=== PATIENT | female | born 1945 | race Caucasian/White ===

== ENCOUNTER → 2016-10-19 | Outpatient (CLI) | payer BC ==
[2016-10-19 12:39] LABS: EKG EKG PERFORMED
[2016-10-19 12:52] LABS: Basophils # (A) 0.1 k/uL (0-0.2); Basophils % (A) 1 %; CH 29.4; CHCM 32.8; Eosinophils # (A) 0.4 k/uL (0-0.7); Eosinophils % (A) 7 %; HCT 40.1 % (34.0-46.0); HDW 2.51; HGB 13.1 gm/dL (11.4-16.0); Luc # (Auto) 0.14; Luc % (Auto) 2; Lymphocytes # (A) 2.1 k/uL (1.0-4.8); Lymphocytes % (A) 36 %; MCH 29.4 pg (25.0-35.0); MCHC 32.8 g/dL (31.0-37.0); MCV 89.9 fL (80.0-100.0); Mean Platelet Volume 6.9; Monocytes # (A) 0.3 k/uL (0-1.0); Monocytes % (A) 5 %; Neutrophils # (A) 2.9 k/uL (1.3-7.7); Neutrophils % (A) 49 %; RBC 4.46 m/uL (3.80-5.40); RDW 13.4 % (11.5-15.5); WBC 5.9 k/uL (3.8-10.6)
[2016-10-19 13:08] LABS: ALT 29 U/L (9-52); AST 30 U/L (14-36); Alkaline Phosphatase 44 U/L (38-126); Anion Gap 10 mmol/L; Blood Urea Nitrogen 18 mg/dL (7-17); Calcium 9.4 mg/dL (8.4-10.2); Carbon Dioxide 27 mmol/L (22-30); Chloride 106 mmol/L (98-107); Glucose 93 mg/dL (74-99); Non-African American GFR(MDRD) >60 (>60 ml/min/1.73 sqM); Partial Thromboplastin Time 23.4 sec (22.0-30.0); Potassium 4.7 mmol/L (3.5-5.1); Sodium 143 mmol/L (137-145); Total Bilirubin 0.5 mg/dL (0.2-1.3)
[2016-10-19 13:11] LABS: INR 1.2 (<1.1)
[2016-10-19 13:21] LABS: Appearance,Urine Clear (Clear); Bacteria,Urine Rare /hpf; Bilirubin,Urine Negative (Negative); Glucose,Urine (UA) Negative (Negative); Ketones,Urine Negative (Negative); Leukocyte Esterase,Urine Trace (Negative); Nitrite,Urine Negative (Negative); Particle Count 1879; Protein,Urine Negative (Negative); Specific Gravity,Urine 1.004 (1.001-1.035); Squamous Epithelial Cell,Urine <1 /hpf (0-4); UA Billing (MACRO vs. MICRO) MICRO; Urobilinogen,Urine <2.0 mg/dL (<2.0); WBC,Urine 1 /hpf (0-5)
== END | disposition home or self-care (01) ==
LOC: LABPAT 12:17
PROVIDERS: ATTEND Orthopaedic Surgery
DX: Z01.818 Encounter for other preprocedural examination (principal)
CPT/HCPCS: 36415; 80053; 81001; 85025; 85610; 85730; 87070; 93005

== ENCOUNTER 2016-11-09 06:14 | Inpatient (IN) | payer BC, MEDICARE ==
[2016-10-27 14:41] VITALS: BMI 39.4
[~2016-11-09 06:14] MED LIST: ACETAMINOPHEN TAB 500 MG TAB PO ONE; DEXAMETHASONE SOD PHOSPHATE 10 MG/ML 1 ML VIAL IV ONE; FAMOTIDINE 20 MG/2 ML VIAL IV PRN; LIDOCAINE 1% 20 ML VIAL (10MG/ML) FOR IV START INTRADERMA PRN; MELOXICAM 7.5 MG TAB PO ONE; MIDAZOLAM 2 MG/2 ML VIAL IV PRN; TRANEXAMIC ACID 1,000 MG in SODIUM CHLORIDE 0.9% 100 ML IVPB ONE; VANCOMYCIN 1,500 MG in SODIUM CHLORIDE 0.9% 250 ML IVPB ONE; ceFAZolin 2 GM in SODIUM CHLORIDE 0.9% 100 ML IVPB ONE
[2016-11-09] MEDS: LACTATED RINGERS 1,000 ML IV SCH (12:25)
[2016-11-09] MEDS: ONDANSETRON 4 MG/2 ML VIAL IVP ONE ×2 (12:26→19:22)
[2016-11-09] MEDS ORDERED: ROPIVACAINE 1,100 MG, SODIUM CHLORIDE 0.9% 330 ML MISCELLANE PRN ×2 (13:40)
--- NOTE | 2016-11-09 13:42 | P.ONQ ---
Anesthesiology Proc Note - PNB - Peripheral Nerve Block Performed Right Adductor Canal Time Out Performed: Yes Procedure Start Time: 13:10 Procedure Stop Time: 13:20 Indication: Acute Post-Operative Pain, Analgesia Sedation Type: Sedate with meaningful contact maintained Preparation: Sterile Prep Position: Supine Catheter: Indwelling Needle Types: On-Q Needle Size: 100mm (4") Needle Gauge: 18 Technique: Ultrasound Injectate: 0.5% Ropivacaine (see comment for volume) Blood Aspirated: No Pain Paresthesia on Injection Noted: No Resistance on Injection: Normal Events: Uneventful and Well Tolerated
[2016-11-09] MEDS ORDERED: SUCCINYLCHOLINE CHLORIDE 100 MG/5 ML SYR IV ONE (17:10)
[2016-11-09] MEDS ORDERED: fentaNYL (PF) 50 MCG/ML 2 ML AMP ONE (17:10)
[2016-11-09] MEDS ORDERED: HYDROmorphone (PF) 1 MG/ML ONE (17:10)
[2016-11-09] MEDS ORDERED: TRANEXAMIC ACID 1,000 MG/10 ML VIAL ONE (17:10)
[2016-11-09] MEDS ORDERED: SODIUM CHLORIDE 0.9% 100 ML BAG ONE (17:10)
[2016-11-09] MEDS ORDERED: PROPOFOL 10 MG/ML 20 ML VIAL IV ONE (17:10)
[2016-11-09] MEDS ORDERED: LIDOCAINE 1% INJ 10MG/ML (20 ML MDV) ONE (17:10)
[2016-11-09] MEDS ORDERED: ROCURONIUM BROMIDE 10 MG/ML 10 ML VIAL IV ONE (17:10)
[2016-11-09] MEDS ORDERED: MIDAZOLAM 2 MG/2 ML VIAL ONE (17:10)
[2016-11-09] MEDS ORDERED: ONDANSETRON 4 MG/2 ML VIAL IVP PRN (17:12)
[2016-11-09] MEDS ORDERED: hydrOXYzine PAMOATE 25 MG CAP PO PRN (17:12)
[2016-11-09] MEDS ORDERED: HYDROcodone/APAP 5-325MG 1 EACH TAB PO PRN (17:12)
[2016-11-09] MEDS ORDERED: DIAZEPAM 5 MG TAB PO PRN ×2 (17:12)
[2016-11-09] MEDS ORDERED: NALOXONE 0.4 MG/ML 1 ML VIAL IV PRN (17:12)
[2016-11-09] MEDS ORDERED: BISACODYL 10 MG SUPP RECTAL PRN (17:12)
[2016-11-09] MEDS ORDERED: MAGNESIUM HYDROXIDE 2,400 MG/10 ML CUP PO PRN (17:12)
[2016-11-09] MEDS ORDERED: HYDROmorphone 1 MG/ML 1 ML SYRINGE IVP PRN ×3 (17:12)
[2016-11-09] MEDS: ROPIVACAINE 246.25 MG, EPINEPHrine 0.5 MG, KETOROLAC 30 MG, cloNIDine HCL/PF 80 MCG, WA... MISCELLANE ONE ×10 (17:33→18:15)
[2016-11-09] MEDS ORDERED: ceFAZolin 3,000 MG in SODIUM CHLORIDE 0.9% IRRIGATIO 3,000 ML IRRIGATION ONE (17:35)
--- NOTE | 2016-11-09 18:25 | P.OP ---
Date of Procedure: 11/09/16 Preoperative Diagnosis: Severe osteoarthritis right knee Postoperative Diagnosis: Severe osteoarthritis right knee Procedure(s) Performed: Right total knee arthroplasty Implants: [employer] Nephew Oxinium femoral component size 5, right Bobby [employer]hew Amanda II right nonporous tibial baseplate size 5 Bobby [employer] Nephew size 9 mm Legion XLPE dished articular insert, size 4-5 Bobby [employer] Nephew Amanda II resurfacing patellar component, 32 mm All components were cemented using Ej bone cement.. The articulation is ceramic on polyethylene. Anesthesia: spinal Surgeon: Callum Menard Court Bailiff #1: Pat Westbrook Court Bailiff #2: Clare Bauer Estimated Blood Loss (ml): 50 Pathology: other (Bone and cartilage) Condition: stable Disposition: PACU Indications for Procedure: After failure of conservative treatment we discussed the surgical and nonsurgical treatment options at length. Patient wishes to proceed with a total knee arthroplasty. Complications specific to this procedure were discussed at length, including but not limited to infection, bleeding, stiffness , and nerve injury. Patient is aware of all these complications and informed consent was obtained Operative Findings: The operative findings are consistent with severe osteoarthritis of the right knee Description of Procedure: Patient was seen in the preoperative area consent was reviewed and operative site was marked with a skin marker. An adductor canal pain catheter was placed by anesthesia in the preoperative area. Patient was then brought to the operating room and given preoperative antibiotics intravenously. A spinal anesthetic was administered by the anesthesia department. A tourniquet was placed on the upper thigh and the lower extremity was prepped and draped in usual sterile fashion. A gram of transexamic acid was given. A universal timeout was then performed which confirmed the patient's name, surgical site, ALLERGIES, and consent. The lower extremity was then exsanguinated and tourniquet was inflated to 250 mmHg. A standard and anterior midline approach to the knee was performed. The skin and subcutaneous tissue was dissected down to the patellar tendon. A medial parapatellar arthrotomy was then performed. The knee was then extended, the patellar was everted, and the knee was again flexed. Anterior horns of both menisci were excised, and a release was performed to the posterior medial aspect of the knee. On gross visual inspection, there was complete loss of articular cartilage in the medial and patellofemoral joint spaces. There was also significant cartilage damage in the lateral compartment. There were multiple periarticular osteophytes which were then removed with a Ronguer. The femoral canal was then opened with the appropriate drill, and the intramedullary femoral cutting guide was then placed and set for 4 of valgus. The distal femoral cutting block was then pinned in place, and the distal femur was then cut. The cutting block was then removed and the cut was checked for flatness. Next, the sizing guide was then placed and set for 3 external rotation based off of the epicondylar axis and Whitesides line. After the femur was sized, the appropriate 4-in-1 cutting block was then pinned in place. The anterior condyles were cut without notching. The posterior and chamfer cuts were performed while protecting the collateral ligaments. The cutting block was then removed, and the femoral canal was plugged with autologous bone. Attention was then directed to the tibia. The remaining ACL was removed with a Ronguer, and the tibia was then gently subluxed forward with a large bent knee retractor. Any remaining menisci was excised. The posterior lateral corner was cauterized in order to cauterize the lateral geniculate artery. The extra medullary tibial cutting guide was then placed, set for the appropriate rotation , slope, and depth of resection. The proximal tibia cutting guide was then pinned in place. Proximal tibia was then cut and sized. Next trials were then placed with the appropriate-sized insert. The knee was able to fully extend and flex to 130 and was stable throughout all range of motion. The knee was then extended, patella everted. Patella was then measured, and then using an osteotomy guide, the patella was cut at the appropriate level. The patella was then measured and drilled and the patella trial was then placed. The knee was then taken through range of motion with the patella trial and the patella tracked normally. The knee was then extended patella trial was then removed and the patella was everted. Knee was then flexed and lug holes were drilled through the femoral trial and the femoral trial was then removed. The tibial was then exposed, and the tibial broach guide was then pinned in place after it was set for the appropriate rotation to allow for the most coverage without overhang. The tibia was then reamed and broached. The cut surfaces of bone were then irrigated with pulsatile lavage. The posterior structures were injected with the ropivacaine solution. The knee was also irrigated with Irrisept solution. The components were then opened, the cement was mixed, and the components were then cemented in place. The cement was allowed to harden with the knee in full extension. While the cement was hardening, the remaining soft tissues were then injected with a ropivacaine solution, which consisted of 246.25 mg of ropivacaine, 0.5 mg of epinephrine, 30 mg of Toradol, 80 g of clonidine, and 48.45 mL of sterile water, for a total of 100 mL of fluid injected. After the cemented hardened. The tourniquet was released, and hemostasis was obtained. A second gram of transexamic acid was given. The knee was again irrigated. The knee was again taken through range of motion and found to be stable throughout all range of motion of 0-130 , and the patella tracked normally. The fascia was then closed with #2 strata fix suture. The subcutaneous tissue was closed with 3-0 Vicryl and 3-0 strata fix. Dermabond tape was used for the skin and placed with the knee in flexion. The patient was placed in a sterile dressing. Patient was then transferred to recovery room in stable condition. The information assistant DARRELL Benz was required due the complexity surgery and the need for a skilled surgical corsetier. She assisted in positioning, draping , retraction, and closure of the wound.
[2016-11-09] MEDS: HYDROmorphone 1 MG/ML 1 ML SYRINGE IVP PRN ×4 (19:22→19:41)
[2016-11-09] MEDS: SODIUM CHLORIDE 0.9% 1,000 ML IV SCH (21:15)
[2016-11-09] MEDS: ASPIRIN 325 MG TAB PO SCH (21:19)
[2016-11-09] MEDS: SENNOSIDES-DOCUSATE SODIUM 1 EACH TAB PO SCH (21:20)
[2016-11-09] MEDS: HYDROcodone/APAP 5-325MG 1 EACH TAB PO PRN (21:24)
--- NOTE | 2016-11-09 22:25 | XR ---
EXAMINATION TYPE: XR knee limited RT DATE OF EXAM: 11/09/2016 7:18 PM COMPARISON: NONE HISTORY: Postoperative TECHNIQUE: AP and crosstable lateral views FINDINGS: TKR appears anatomically positioned. Postoperative changes appreciated. No unexpected radio paque foreign bodies. Bones and joints and soft tissues are otherwise unremarkable. IMPRESSION: Postoperative study.
[2016-11-10] MEDS: ceFAZolin 2 GM in SODIUM CHLORIDE 0.9% 100 ML IVPB SCH ×2 (01:10→08:03)
[2016-11-10] MEDS ORDERED: VANCOMYCIN 1,750 MG in SODIUM CHLORIDE 0.9% 250 ML IVPB ONE (02:04)
[2016-11-10] MEDS: LACTATED RINGERS 1,000 ML IV SCH (07:34)
[2016-11-10] MEDS: SODIUM CHLORIDE 0.9% 1,000 ML IV SCH ×2 (07:34→22:38)
[2016-11-10 08:01] LABS: Basophils % (A) 0 %; CH 28.7; CHCM 32.1; Eosinophils % (A) 0 %; HCT 35.6 % (34.0-46.0); HDW 2.62; Luc # (Auto) 0.17; Luc % (Auto) 2; Lymphocytes # (A) 1.8 k/uL (1.0-4.8); Lymphocytes % (A) 19 %; MCH 30.3 pg (25.0-35.0); MCHC 33.7 g/dL (31.0-37.0); MCV 89.8 fL (80.0-100.0); Mean Platelet Volume 7.3; Monocytes # (A) 0.5 k/uL (0-1.0); Monocytes % (A) 5 %; Neutrophils # (A) 7.2 k/uL (1.3-7.7); Neutrophils % (A) 74 %; RBC 3.96 m/uL (3.80-5.40); RDW 12.8 % (11.5-15.5); WBC 9.7 k/uL (3.8-10.6); WBC (Perox) 10.55
[2016-11-10] MEDS: ASPIRIN 325 MG TAB PO SCH (08:01)
[2016-11-10] MEDS: HYDROcodone/APAP 5-325MG 1 EACH TAB PO PRN ×3 (08:02→18:12)
[2016-11-10] MEDS: MELOXICAM 7.5 MG TAB PO SCH (08:02)
--- NOTE | 2016-11-10 08:43 | P.PN ---
Subjective Principal diagnosis: Status post right total knee arthroplasty This is a pleasant 71-year-old female who is status post right total knee arthroplasty. Today's postoperative day #1. The patient is seen and evaluated at bedside with Dr. Callum Menard. Pain is well-controlled at this time. She' s not yet been up with physical therapy. She has no new complaints at this time. Objective - Vital Signs Vital signs: Vital Signs Temp 97.9 F 11/10/16 07:00 Pulse 81 11/10/16 07:00 Resp 16 11/10/16 07:00 BP 128/63 11/10/16 07:00 Pulse Ox 99 11/10/16 07:00 Intake & Output 11/09/16 11/10/16 11/10/16 18:59 06:59 18:59 Intake Total 701 350 180 Output Total 50 Balance 651 350 180 Weight 104.326 kg Intake: IV 701 150 Intake, IV Titration 200 Amount Sodium Chloride 0.9% 1, 200 000 ml @ 70 mls/hr IV . [id number] [facility] Rx#:[id number] Oral 180 Output: Estimated Blood Loss 50 Other: Voiding Method Bedpan - Exam The patient does not appear in acute distress. Alert and orientated 3. Dressing is clean dry and intact. Incision appears fine with no erythema or active drainage. Calf is soft and nontender. Good foot and ankle motion without difficulty. Sensation and circulatory status is intact. - Labs CBC & Chem 7: 11/10/16 06:41 Assessment and Plan (1) Primary osteoarthritis of right knee Status: Acute (2) Status post right knee replacement Status: Acute Plan: 1. Continue with routine postoperative care. 2. Anticoagulation with aspirin. 3. Physical therapy and CPM today. 4. Appreciate input from medicine. 5. Anticipate discharge to home with home care likely tomorrow.
--- NOTE | 2016-11-10 09:25 | P.PN ---
Subjective Principal diagnosis: pod 1; on q pump in place; comfortable; catheter system intact Objective - Vital Signs Vital signs: Vital Signs Temp 97.9 F 11/10/16 07:00 Pulse 81 11/10/16 07:00 Resp 16 11/10/16 07:00 BP 128/63 11/10/16 07:00 Pulse Ox 99 11/10/16 07:00 Intake & Output 11/09/16 11/10/16 11/10/16 18:59 06:59 18:59 Intake Total 701 350 180 Output Total 50 Balance 651 350 180 Weight 104.326 kg Intake: IV 701 150 Intake, IV Titration 200 Amount Sodium Chloride 0.9% 1, 200 000 ml @ 70 mls/hr IV . [id number] [facility] Rx#:[id number] Oral 180 Output: Estimated Blood Loss 50 Other: Voiding Method Bedpan - Labs CBC & Chem 7: 11/10/16 06:41
[2016-11-10] MEDS ORDERED: ALBUTEROL NEBULIZED 2.5 MG/3 ML INHALATION PRN (13:00)
[2016-11-10] MEDS ORDERED: traMADol 50 MG TAB PO PRN (13:00)
--- NOTE | 2016-11-10 17:07 | CONS ---
DATE OF CONSULTATION: REASON FOR CONSULTATION: Postoperative recommendations regarding anti-hypertensive medications and postoperative complication management. Patient is a very pleasant 71-year-old female who was admitted for elective right knee arthroplasty. Patient successfully underwent surgery; postoperative day 1. Patient has ( ) rate control at this point of time. Patient denied any fever or chills. Patient denied any nausea, vomiting, diarrhea, abdominal pain. Patient is complaining of some cold sore on the lip which does not appear to be herpetic in nature. REVIEW OF SYSTEMS: CONSTITUTIONAL: No fever, no malaise, no fatigue. HEENT: No recent visual problems or hearing problems. Denied any sore throat. CARDIOVASCULAR: No chest pain, orthopnea, PND, no palpitations, no syncope. PULMONARY: No shortness of breath, no cough, no hemoptysis. GASTROINTESTINAL: No diarrhea, no nausea, no vomiting, no abdominal pain. Normoactive bowel sounds. NEUROLOGICAL: No headaches, no weakness, no numbness. HEMATOLOGICAL: Denies any bleeding or petechiae. GENITOURINARY: Denies any burning micturition, frequency, or urgency. MUSCULOSKELETAL/RHEUMATOLOGICAL: Defer to Orthopedic Surgery. ENDOCRINE: Denies any polyuria or polydipsia. The rest of the 14 point review of systems is negative. Past medical history is significant for: 1. COPD without any acute exacerbation at this point of time. 2. Fibromyalgia. 3. Hypertension. 4. Hypothyroidism. 5. Osteoarthritis. 6. Appendectomy. 7. Back surgery. 8. Cholecystectomy. 9. Hysterectomy. SOCIAL HISTORY: Former smoker. Quit smoking 19 years ago. Used to smoke 1 pack per day for 30 years. Denied any alcohol abuse or any drug abuse. FAMILY HISTORY: Significant for hypertension. Home medications include: 1. Tramadol. 2. Propranolol. 3. Pregabalin. 4. Levothyroxine. 5. Fexofenadine. 6. Fenofibrate. 7. Celecoxib. 8. Aspirin. 9. Albuterol. 10. Hydrocodone/acetaminophen. PHYSICAL EXAMINATION: VITAL SIGNS: Temperature 98.3, pulse of 88, respiratory rate of 16. Blood pressure is 153/74. Saturating at 97% on room air. GENERAL: The patient is alert and oriented x3, not in any acute distress. Well developed, well nourished. HEENT: Pupils are round and equally reacting to light. EOMI. No scleral icterus. No conjunctival pallor. Normocephalic, atraumatic. No pharyngeal erythema. No thyromegaly. CARDIOVASCULAR: S1 and S2 present. No murmurs, rubs, or gallops. PULMONARY: Chest is clear to auscultation, no wheezing or crackles. ABDOMEN: Soft, nontender, nondistended, normoactive bowel sounds. No palpable organomegaly. MUSCULOSKELETAL: Defer to Orthopedic Surgery. EXTREMITIES: No cyanosis, clubbing, or pedal edema. NEUROLOGICAL: Gross neurological examination did not reveal any focal deficits. SKIN: No rashes. ASSESSMENT AND PLAN: 1. Right knee arthroplasty. Pain management as per primary service and DVT prophylaxis as per primary service. 2. Hypertension. Patient is on propranolol for that, which can be continued. Patient's blood pressures are fairly doing well at this point of time. 3. Hypothyroidism. 4. Chronic obstructive pulmonary disease without any acute exacerbation. 5. Depression. 6. Peripheral neuropathy. For above-mentioned chronic medical problems, ( ) continue her home medications. Cardiac diet. Continue her home medications, as mentioned above. Thank you for letting me participate in this patient's care. Will continue to follow the patient on as-needed basis.
[2016-11-10] MEDS ORDERED: SERTRALINE 100 MG TAB PO SCH (21:00)
[2016-11-10] MEDS: PROPRANOLOL LA 60 MG CAP.SA.24H PO SCH (22:13)
[2016-11-10] MEDS: SENNOSIDES-DOCUSATE SODIUM 1 EACH TAB PO SCH (22:13)
[2016-11-10] MEDS: PREGABALIN 75 MG CAP PO SCH (22:49)
[2016-11-11] MEDS: HYDROcodone/APAP 5-325MG 1 EACH TAB PO PRN ×3 (02:56→13:34)
[2016-11-11] MEDS: LACTATED RINGERS 1,000 ML IV SCH (05:30)
[2016-11-11] MEDS ORDERED: LEVOTHYROXINE 100 MCG TAB PO SCH (06:30)
[2016-11-11 07:15] VITALS: BP 156/79; PULSE 82; RESP 17; TEMP 98.5
[2016-11-11] MEDS: MELOXICAM 7.5 MG TAB PO SCH (07:20)
[2016-11-11] MEDS: PROPRANOLOL LA 60 MG CAP.SA.24H PO SCH (07:20)
[2016-11-11] MEDS: PREGABALIN 75 MG CAP PO SCH (07:24)
--- NOTE | 2016-11-11 08:16 | P.PN ---
Subjective Principal diagnosis: Status post total right knee arthroplasty This is a well-appearing 8-year-old female status post total right knee arthroplasty. Today is postop day #2. Patient's pain is under fair control. Patient states she has been up and walking. Patient has no new complaints and states she is ready to be discharged home today. Objective - Vital Signs Vital signs: Vital Signs Temp 98.5 F 11/11/16 07:14 Pulse 82 11/11/16 07:14 Resp 17 11/11/16 07:14 BP 156/79 11/11/16 07:14 Pulse Ox 96 11/11/16 07:14 Intake & Output 11/10/16 11/11/16 11/11/16 18:59 06:59 18:59 Intake Total 600 200 Balance 600 200 Intake: Oral 600 200 Other: Voiding Method Bedpan # Voids 1 1 # Bowel Movements 1 - Exam The patient does not appear in acute distress. Alert and oriented 3. Calf is soft and nontender. Sensation and circulatory status are intact. Vital signs are stable. Patient has good foot and ankle range of motion. Incision is clean , dry, intact with no drainage present on the dressing. - Labs CBC & Chem 7: 11/10/16 06:41 Assessment and Plan (1) Status post right knee replacement Status: Acute Plan: Patient will be discharged home today.
--- NOTE | 2016-11-11 08:31 | P.PN ---
Progress Note - Text The patient is status post right adductor canal catheter placement. The catheter was placed for postoperative pain control, status post total right arthroplasty. Ropivacaine 0.2% is infusing at 10 mLs per hour. The patient has no complaints of right lower extremity numbness or weakness. Patient's VAS score is 3-4 -10. Assessment: Patient's adductor canal catheter is in place and working appropriately. Plan: continue infusion and adjust it as needed.
--- NOTE | 2016-11-11 08:53 | P.DS ---
Providers Date of admission: 11/09/16 10:41 Expected date of discharge: 11/11/16 Attending physician: Callum Menard Consults: 11/09/16 17:12 Consult Physician Routine Consulting Provider: Violeta Gray Consult Reason/Comments: medical management Do you want consulting provider notified?: Yes Primary care physician: Taiwo Hutchison - Discharge Diagnosis(es) (1) Status post right knee replacement Current Visit: Yes Status: Acute Hospital Course: This is a 71-year-old female with known history of degenerative arthritis of the right knee. The patient presents for evaluation. After discussion and consideration patient elects to proceed with total knee arthroplasty. The patient is seen preoperatively by Dr. Menard and cleared for surgery. Patient is admitted to [facility] on 11/09/2016 for total knee arthroplasty. The procedures performed without complication or sequelae. The patient is doing well postoperatively. Labs and vital signs are stable on day of discharge. On day of discharge patient's knee incision is healing well. There is minimal erythema. There is no drainage noted at this time. There is minimal soft tissue swelling to the knee. Patient has full foot and ankle motion without difficulty or pain. Neurovascular status to the right lower extremity is intact. Patient is discharged home in good condition. Please see med rec for accurate list of home medications. Plan - Discharge Summary New Discharge Prescriptions: Aspirin 325 mg PO BID #60 tab Hydrocodone/Acetaminophen [Slater 5-325] 1 - 2 each PO Q6HR PRN #90 tab PRN Reason: Pain Sennosides-Docusate Sodium [Senokot-S] 2 tab PO DAILY #60 tablet Discharge Medication List Albuterol Inhaler [Ventolin Hfa Inhaler] 2 puff INHALATION RT-Q6H PRN 10/27/16 [ History] Aspirin 81 mg PO DAILY 10/27/16 [History] Celecoxib [CeleBREX] 200 mg PO BID 10/27/16 [History] Cyclobenzaprine [Flexeril] 10 mg PO HS 10/27/16 [History] Fenofibrate Nanocrystallized [Tricor] 145 mg PO DAILY 10/27/16 [History] Fesoterodine Fumarate [Toviaz] 8 mg PO DAILY 10/27/16 [History] Fexofenadine HCl [Rosa Allergy] 180 mg PO DAILY 10/27/16 [History] Levothyroxine Sodium [Synthroid] 100 mcg PO DAILY 10/27/16 [History] Pregabalin [Lyrica] 150 mg PO BID 10/27/16 [History] Propranolol HCl [Propranolol HCl ER] 60 mg PO BID 10/27/16 [History] Sertraline [Zoloft] 100 mg PO HS 10/27/16 [History] traMADol HCL [Ultram] 100 mg PO Q6HR PRN 10/27/16 [History] Aspirin 325 mg PO BID #60 tab 11/10/16 [Rx] Hydrocodone/Acetaminophen [Slater 5-325] 1 - 2 each PO Q6HR PRN #90 tab 11/10/16 [Rx] Sennosides-Docusate Sodium [Senokot-S] 2 tab PO DAILY #60 tablet 11/10/16 [Rx] Follow up Appointment(s)/Referral(s): Callum Menard DO [Doctor of Osteopathic Medicine] - 2 Weeks Ambulatory/Diagnostic Orders: Continuous Passive Motion (CPM) Machine [DME.AMB1] Location: Determined By Patient Activity/Diet/Wound Care/Special Instructions: Weightbearing as tolerated with a walker CPM daily Daily dressing changes, keep incision clean and dry [facility] with questions or concerns [phone] [facility] care - Call [facility] when you get home to deliver your CPM - Discharge Disposition: HOME WITH HOME HEALTH SERVICES
[2016-11-11] MEDS ORDERED: ASPIRIN 81 MG CHEW PO SCH (09:00)
[2016-11-11] MEDS ORDERED: FENOFIBRATE 160 MG TAB PO SCH (09:00)
[2016-11-11] MEDS: SODIUM CHLORIDE 0.9% 1,000 ML IV SCH (12:01)
--- NOTE | 2016-11-11 16:04 | PN ---
Patient is admitted for knee arthroplasty. Patient is clinically doing well. Patient's medication reconciliation was reviewed. Patient is okay to be discharged from my perspective. REVIEW OF SYSTEMS: CARDIOVASCULAR: No chest pain, no orthopnea, no PND, no palpitations. PULMONARY: Denied any shortness of breath. No cough or hemoptysis. GASTROINTESTINAL: No diarrhea, nausea or vomiting. No abdominal pain. Normoactive bowel sounds. NEUROLOGIC: No headaches, no weakness, no numbness. Medications were reviewed. PHYSICAL EXAMINATION: VITAL SIGNS: Temperature 98.5, pulse 75, respiratory rate of 17, blood pressure is 156/70, saturating at 96% on room air. GENERAL: The patient is alert and oriented x3, not in any acute distress. Well developed, well nourished. HEENT: Pupils are round and equally reacting to light. EOMI. No scleral icterus. No conjunctival pallor. Normocephalic, atraumatic. No pharyngeal erythema. No thyromegaly. CARDIOVASCULAR: S1 and S2 present. No murmurs, rubs, or gallops. PULMONARY: Chest is clear to auscultation, no wheezing or crackles. ABDOMEN: Soft, nontender, nondistended, normoactive bowel sounds. No palpable organomegaly. MUSCULOSKELETAL: No joint swelling or deformity. EXTREMITIES: No cyanosis, clubbing, or pedal edema. NEUROLOGICAL: Gross neurological examination did not reveal any focal deficits. SKIN: No rashes. FINAL DIAGNOSES: 1. Right knee arthroplasty. Pain management and DVT prophylaxis as per primary service. 2. Hypertension. 3. Hypothyroidism. 4. Chronic obstructive pulmonary disease without any acute exacerbation. 5. Depression. 6. Peripheral neuropathy. For above-mentioned chronic medical problems, patient can continue her home medications. I reviewed her chart. Medication reconciliation was reviewed. We will sign off at this point of time.
== END 2016-11-11 13:55 | disposition home health service (06) | DRG 470 ==
LOC: 2ORMAIN 10:41 → 3SUR 19:24
PROVIDERS: ADMIT Orthopaedic Surgery; ATTEND Orthopaedic Surgery
PROC: 0SRC0J9 Replacement of Right Knee Joint with Synthetic Substitute, Cemented, Open Approach (ICD-10-PCS; principal; 2016-11-09 15:15)
DX: M17.11 Unilateral primary osteoarthritis, right knee (principal); G62.9 Polyneuropathy, unspecified; J44.9 Chronic obstructive pulmonary disease, unspecified; I10 Essential (primary) hypertension; M21.061 Valgus deformity, not elsewhere classified, right knee; E03.9 Hypothyroidism, unspecified; Z79.899 Other long term (current) drug therapy; Z88.2 Allergy status to sulfonamides; B00.1 Herpesviral vesicular dermatitis; F32.9 Major depressive disorder, single episode, unspecified; Z82.49 Family history of ischemic heart disease and other diseases of the circulatory system; Z87.891 Personal history of nicotine dependence
CPT/HCPCS: 85025; 88300

== ENCOUNTER 2022-04-23 09:15 | Day surgery (SDC) | payer MEDICARE, OTHER ==
[2022-04-21 09:49] VITALS: BMI 42.9
--- NOTE | 2022-04-22 20:34 | HP ---
HISTORY AND PHYSICAL CHIEF COMPLAINT: Chronic laryngitis with left true vocal cord lesion. HISTORY OF PRESENT ILLNESS: This patient is a 76-year-old female who was recently seen in my office complaining of having chronic laryngitis. She states that she has had hoarseness, which has been there for several years. It does not cause any pain and she does not have any referred otalgia. She is a nonsmoker. At the time that she was seen in my office, clinical examination including indirect laryngoscopy with a headlight and mirror revealed a polypoid-like lesion on the left true vocal cord. It was recommend the patient undergo a suspension microlaryngoscopy with biopsy and possible laser removal of polypoid lesion on the left true vocal cord. PAST MEDICAL HISTORY: Reveals she has allergies to sulfa, iodine, Betadine, and merthiolate. CURRENT MEDICATIONS: Include: 1. Albuterol. 2. Symbicort. 3. Tricor. 4. Zoloft. 5. Inderal. 6. Synthroid. 7. Celebrex. 8. Lyrica. 9. Toviaz. She is 3 para, 3 . PREVIOUS SURGERIES: Include tonsillectomy, adenoidectomy, total abdominal hysterectomy, previous suspension microlaryngoscopy with polyps removed from her vocal cords years ago, cholecystectomy, appendectomy, 3 lower back surgeries, bilateral knee surgeries with 1 total knee replacement. REVIEW OF SYSTEMS: CARDIOVASCULAR: Positive for hypertension. RESPIRATORY: Positive for COPD. GASTROINTESTINAL: Negative. METABOLIC/ENDOCRINE: Positive for hypercholesterolemia, hyperlipidemia, and hypothyroidism. MUSCULOSKELETAL: Positive osteoarthritis and fibromyalgia. Remainder of review of systems is essentially unremarkable. PHYSICAL EXAMINATION: GENERAL: This patient is a pleasant 76-year-old female who was alert and cooperative. HEENT: The patient is normocephalic. Tympanic membranes are normal. Middle ear spaces are free of any fluid or infection. Pupils are equal, round, and reactive to light and accommodation. Extraocular movements are within normal limits. Intranasal examination reveals [id number] septal deviation with compensatory hypertrophy of the inferior turbinates bilaterally. Examination of oropharynx including indirect laryngoscopy reveals no suspicious lesions of the right or left piriform sinuses, base of tongue, or epiglottis. There appears to be a polypoid lesion located on the left true vocal cord. The remainder of the head and neck exam including cranial nerves 2 through 12 are within normal limits. CHEST/CARDIOVASCULAR: Both lung penn are clear to percussion and auscultation. The patient is in regular sinus rhythm. S1, S2 are present without evidence of any murmurs, S3s, or S4s. Peripheral pulses are bilaterally symmetrical. ABDOMEN: There is no evidence any masses, megaly, or tenderness. The abdomen is soft. SKIN: Unremarkable. MUSCULOSKELETAL/NEUROLOGICAL: Within normal limits. PELVIC/RECTAL: Deferred at this time as the patient has this done on a regular basis at her family physician's office. The remainder of physical exam is unremarkable. IMPRESSION: Chronic laryngitis with laryngeal lesion/left true vocal cord lesion. PLAN: The patient is scheduled to undergo a suspension microlaryngoscopy with possible laser of the polypoid lesion under general anesthesia in a.m. Attention RNs in the pre-surgical area: I have ordered for this patient to proceed 2 grams of Ancef IV to be given intravenously once an intravenous line has been established. If the pharmacy department sends a different pre-surgical prophylactic antibiotic to the pre-surgical area for this patient, please cancel that order and return the medication to the pharmacy department. Also make sure that the patient's account is credited appropriately. I have also ordered for this patient to receive 1000 mg of Ofirmev IV to be given once an intravenous line has been established. I have discussed the risks, benefits and alternative therapies for the above-mentioned procedure and for both sedation/analgesia as well as necessary blood product administration, if indicated, as they pertain to this patient. The patient has indicated her understanding and acceptance of the risks and procedures discussed. MMODL / IJN: [id number] /
[~2022-04-23 09:15] MED LIST changes: -ACETAMINOPHEN TAB 500 MG TAB PO ONE; -DEXAMETHASONE SOD PHOSPHATE 10 MG/ML 1 ML VIAL IV ONE; +DEXAMETHASONE SOD PHOSPHATE 4 MG/ML 1 ML VIAL IV ONE; -FAMOTIDINE 20 MG/2 ML VIAL IV PRN; +HYDROmorphone 0.5 MG/0.5 ML SYRINGE IVP PRN; +LACTATED RINGERS 1,000 ML IV SCH; +LIDOCAINE 1% (10MG/ML) FOR IV START INTRADERMA PRN; -LIDOCAINE 1% 20 ML VIAL (10MG/ML) FOR IV START INTRADERMA PRN; -MELOXICAM 7.5 MG TAB PO ONE; +ONDANSETRON 4 MG/2 ML VIAL IVP ONE; +Pre Op ABX Message 1 EACH MISC MISCELLANE ONE; -TRANEXAMIC ACID 1,000 MG in SODIUM CHLORIDE 0.9% 100 ML IVPB ONE; -VANCOMYCIN 1,500 MG in SODIUM CHLORIDE 0.9% 250 ML IVPB ONE; -ceFAZolin 2 GM in SODIUM CHLORIDE 0.9% 100 ML IVPB ONE
[2022-04-23] MEDS ORDERED: GLYCOPYRROLATE 0.2 MG/ML 2 ML VIAL ONE (10:50)
[2022-04-23] MEDS ORDERED: fentaNYL (PF) 50 MCG/ML 2 ML AMP ONE (10:50)
[2022-04-23] MEDS ORDERED: SUCCINYLCHOLINE CHLORIDE 200 MG/10 ML VIAL IV ONE (10:50)
[2022-04-23] MEDS ORDERED: MIDAZOLAM 2 MG/2 ML VIAL ONE (10:50)
[2022-04-23] MEDS ORDERED: LIDOCAINE 2% INJ 20 MG/ML (2 ML VIAL) ONE (10:50)
[2022-04-23] MEDS ORDERED: PROPOFOL 10 MG/ML 20 ML VIAL IV ONE (10:50)
[2022-04-23] MEDS ORDERED: ACETAMINOPHEN IV (For NPO) 1,000 MG in EMPTY BAG 1 BAG IVPB ONE (10:55)
[2022-04-23 11:58] VITALS: TEMP 97.5
[2022-04-23 12:58] VITALS: RESP 16
[2022-04-23 13:31] VITALS: BP 122/78; PULSE 71
--- NOTE | 2022-04-25 15:39 | OP ---
OPERATIVE REPORT PREOPERATIVE DIAGNOSIS: Chronic laryngitis with left true vocal cord polyp. POSTOPERATIVE DIAGNOSIS: Chronic laryngitis with left true vocal cord polyp. ANESTHESIA: General. OPERATIVE PROCEDURE: Suspension microlaryngoscopy with CO2 laser vaporization of left true vocal cord polyp. COMPLICATIONS: None. ESTIMATED BLOOD LOSS: Zero. DESCRIPTION OF PROCEDURE: The patient was placed on the operating table in supine position, and after uneventful induction and endotracheal intubation, satisfactory general anesthesia was obtained. Next, the patient's head was draped in the usual and customary fashion. Following this, the laryngoscope was introduced into patient's oropharynx and the entire hypopharynx including the right and left piriform sinuses, base of tongue, valleculae and epiglottis were inspected and found to be free of any suspicious lesions. Next, the tip of the laryngoscope was introduced into the laryngeal introitus. The Lewy apparatus was attached to the handle of the laryngoscope and the laryngoscope was then suspended on the patient's chest. Next, using the Zeiss operating microscope, inspection of the vocal cord revealed the patient had polypoid changes along the left true vocal cord. These were vaporized using the CO2 laser set on the appropriate setting. The patient was given 10 mg of Decadron intraoperatively to reduce any postoperative laryngeal edema. At this point, the procedure was terminated. There were no biopsies. There were no intraoperative complications. The patient tolerated the procedure well and was returned to the recovery room in satisfactory condition. MMODL / IJN: [id number] /
== END 2022-04-23 13:54 | disposition home or self-care (01) ==
LOC: OR 09:15
PROVIDERS: ATTEND Otolaryngology
DX: J37.0 Chronic laryngitis (principal); I10 Essential (primary) hypertension; E07.9 Disorder of thyroid, unspecified; M19.90 Unspecified osteoarthritis, unspecified site; M79.7 Fibromyalgia; Z88.2 Allergy status to sulfonamides; Z90.89 Acquired absence of other organs; Z90.710 Acquired absence of both cervix and uterus; Z96.653 Presence of artificial knee joint, bilateral; Z98.890 Other specified postprocedural states; Z90.49 Acquired absence of other specified parts of digestive tract; Z79.899 Other long term (current) drug therapy
CPT/HCPCS: 31541; J2250; J0330; J1100; J0690; J2405; J3010; J0131; J2704; J1170; J2001

== ENCOUNTER → 2024-03-23 | Outpatient (CLI) | payer MEDICARE, OTHER ==
--- NOTE | 2024-04-12 11:54 | MR ---
Patient: Brenda Kellogg Ordering Physician: Unknown, Unknown ID: [id number] Phone, Pager: Phone: N/A Pager: N/A : 1945 Age/Gender: 78Y, F Primary Location: N/A Procedure: MR Right shoulder w o con Study Date: 03/23/2024 12:05:10 PM Order #: N/[id number] EXAMINATION TYPE: MR shoulder RT wo con DATE OF EXAM: 03/23/2024 COMPARISON: Outside right shoulder x-ray March 21, 2024 HISTORY: Right shoulder pain, injury 2 months ago TECHNIQUE: Multiplanar, multisequence imaging of the right shoulder is performed without contrast. FINDINGS: Rotator Cuff: Increased signal with surrounding fluid throughout the infraspinatus tendon. More promi nent increased signal with surrounding fluid throughout the supraspinatus tendon. Heterogeneous but i ntact subscapularis tendon with surrounding fluid. Some partial tearing noted. Rotator cuff muscle bu lk is preserved. Some edematous change in the supraspinatus muscle bulk. Acromioclavicular Joint: Mild to moderate narrowing and spurring. Moderate capsular hypertrophy. Glenohumeral Joint: Large sized joint effusion. Narrowing is present. No significant spurring. Labrum: Increased signal superior labrum consistent with tear coronal image 17 for reference. Biceps Tendon: The long head of biceps is not well identified in normal location within bicipital shira ove. Dislocation and tear is suspected. Bone marrow signal: Subchondral cystic change superior aspect of the humeral head. Other: No additional significant abnormality is appreciated. IMPRESSION: 1. SLAP like superior labral tear. 2. Tendinosis and partial tearing of the subscapularis tendon. 3. Tendinosis of the infraspinatus tendon. More prominent tendinosis and partial tearing of the supra spinatus tendon. 4. Large glenohumeral joint effusion. 5. Probable tear and dislocation of the long head of biceps tendon. Correlate clinically.
== END | disposition home or self-care (01) ==
LOC: RADMRIMAIN 12:42
PROVIDERS: ATTEND Family Medicine
DX: M75.111 Incomplete rotator cuff tear or rupture of right shoulder, not specified as traumatic (principal); M67.813 Other specified disorders of tendon, right shoulder; M25.411 Effusion, right shoulder; S43.431A Superior glenoid labrum lesion of right shoulder, initial encounter

== ENCOUNTER → 2024-04-18 | Outpatient (CLI) | payer MEDICARE, OTHER ==
[2024-04-18 15:33] LABS: BUN/Creat Ratio 15.08 Ratio (12.00-20.00); Blood Urea Nitrogen 18.1 mg/dL (9.0-27.0); Calcium 9.2 mg/dL (8.7-10.3); Chloride 96 mmol/L (96-109); Glucose 88 mg/dL (70-110); Potassium 5.1 mmol/L (3.5-5.5); Sodium 133 mmol/L (135-145)
[2024-04-18 15:43] LABS: Basophils # (A) 0.06 X 10*3/uL (0.00-0.10); Basophils % (A) 1.1 %; Eosinophils # (A) 0.19 X 10*3/uL (0.04-0.35); Eosinophils % (A) 3.3 %; HCT 35.8 % (37.2-46.3); HGB 11.5 g/dL (12.0-15.0); Lymphocytes # (A) 1.46 X 10*3/uL (0.90-5.00); Lymphocytes % (A) 25.7 %; MCH 27.8 pg (27.0-32.0); MCHC 32.1 g/dL (32.0-37.0); MCV 86.5 FL (80.0-97.0); Monocytes # (A) 0.56 X 10*3/uL (0.20-1.00); Monocytes % (A) 9.8 %; NRBC Per 100 WBC 0 X 10*3/uL (0.00-0.01); Neutrophils # (A) 3.39 X 10*3/uL (1.80-7.70); Neutrophils % (A) 59.6 %; Platelet Count 275 X 10*3/uL (140-440); RBC 4.14 X 10*6/uL (4.10-5.20); RDW 14.6 % (11.5-14.5); WBC 5.69 X 10*3/uL (4.50-10.00)
== END | disposition home or self-care (01) ==
LOC: LABPAT 10:46
PROVIDERS: ATTEND Orthopaedic Surgery
DX: Z01.818 Encounter for other preprocedural examination
CPT/HCPCS: 80048; 85025; 93005

== ENCOUNTER 2024-05-03 05:33 | Day surgery (SDC) | payer MEDICARE, OTHER ==
[2024-04-30 10:00] VITALS: BMI 41.1
--- NOTE | 2024-05-02 13:22 | HP ---
HISTORY AND PHYSICAL DATE OF SURGERY: 05/03/2024. HISTORY OF PRESENT ILLNESS: Brenda Kellogg is a 78-year-old patient seen with progressive right shoulder pain. We discussed options regarding treatment. She elected to proceed with right shoulder arthroscopy. Consent was obtained. Medical clearance was provided. PAST MEDICAL HISTORY: Hypertension, hypothyroidism, fibromyalgia, osteoarthritis. PAST SURGICAL HISTORY: Carpal tunnel surgery, lumbar spine surgery, appendectomy, cholecystectomy, hysterectomy. DAILY MEDICATIONS: 1. Albuterol inhaler. 2. Celebrex. 3. Omeprazole. 4. Sertraline. 5. Synthroid. 6. Tramadol. 7. Zoloft. ALLERGIES: Sulfa. SOCIAL HISTORY: She denies tobacco use. PHYSICAL EVALUATION OF THE RIGHT SHOULDER: Flexion is 90 degrees, abduction 70 degrees. External rotation is 30 degrees with pain and weakness. Tenderness along the anterolateral acromion and rotator cuff insertion site. Impingement is positive at 70 degrees. Drop-arm sign is positive. Cross-body adduction sign is positive. Distal neurovascular exam is intact. IMAGING STUDIES: Right shoulder radiographs revealed a type 2 acromion, cystic changes of the tuberosity. MRI of right shoulder revealed rotator cuff tendon tear, labral tear, and biceps tendon tear. IMPRESSION: 1. Right shoulder impingement with rotator cuff tear. 2. Right shoulder labral tear. 3. Right shoulder partial long head biceps tendon tear. PLAN: Right shoulder arthroscopy with subacromial decompression, arthroscopic rotator cuff repair, biceps tenodesis versus tenotomy and debridement of labral tear. MMODL / IJN: [id number] /
[2024-05-03] MEDS ORDERED: LIDOCAINE 1% (10MG/ML) FOR IV START INTRADERMA PRN (05:47)
[2024-05-03 06:41] VITALS: RESP 16
[2024-05-03] MEDS: LACTATED RINGERS 1,000 ML IV SCH (07:00)
[2024-05-03] MEDS: IV FLUID CONTINUATION 1,000 ML IV ONE (07:00)
[2024-05-03] MEDS ORDERED: fentaNYL (PF) 50 MCG/ML 2 ML AMP IVP PRN (07:00)
[2024-05-03] MEDS ORDERED: HYDROmorphone 0.5 MG/0.5 ML SYRINGE IVP PRN (07:00)
[2024-05-03] MEDS: ONDANSETRON 4 MG/2 ML VIAL IVP ONE (07:05)
[2024-05-03] MEDS: DEXAMETHASONE SOD PHOSPHATE 4 MG/ML 1 ML VIAL IV ONE (07:05)
[2024-05-03] MEDS: MIDAZOLAM 2 MG/2 ML VIAL IV PRN (07:10)
[2024-05-03] MEDS ORDERED: NEOSTIGMINE 1 MG/ML 10 ML VIAL ONE (07:25)
[2024-05-03] MEDS ORDERED: ROPIVACAINE 5 MG/ML 30 ML VIAL ONE (07:25)
[2024-05-03] MEDS ORDERED: GLYCOPYRROLATE 0.2 MG/ML 2 ML VIAL ONE (07:25)
[2024-05-03] MEDS ORDERED: DEXAMETHASONE SOD PHOSPHATE 4 MG/ML 1 ML VIAL ONE (07:25)
[2024-05-03] MEDS ORDERED: ROCURONIUM 10 MG/ML (5 ML VIAL) IV ONE (07:25)
[2024-05-03] MEDS ORDERED: SUCCINYLCHOLINE CHLORIDE 200 MG/10 ML VIAL IV ONE (07:25)
[2024-05-03] MEDS ORDERED: PROPOFOL 10 MG/ML 20 ML VIAL IV ONE (07:25)
[2024-05-03] MEDS ORDERED: LIDOCAINE 1% INJ 10MG/ML (20 ML MDV) ONE (07:25)
[2024-05-03] MEDS ORDERED: fentaNYL (PF) 50 MCG/ML 2 ML AMP ONE (07:25)
[2024-05-03 09:23] VITALS: TEMP 97
--- NOTE | 2024-05-03 09:25 | P.OP ---
Date of Procedure: 05/03/24 Preoperative Diagnosis: Right shoulder impingement Postoperative Diagnosis: 1. Right shoulder rotator cuff tear 2. Right shoulder impingement 3. Right shoulder acromioclavicular joint osteoarthritis 4. Right shoulder partial long head biceps tendon tear 5. Right shoulder superficial labral tear Procedure(s) Performed: 1. Right shoulder arthroscopic rotator cuff repair 2. Right shoulder arthroscopic subacromial decompression 3. Right shoulder arthroscopic Serg procedure 4. Right shoulder arthroscopic biceps tenotomy 5. Right shoulder arthroscopic debridement labral tear Implants: None Anesthesia: GETA, regional (Interscalene block) Surgeon: Alden Rodriguez Neon Pumper #1: Nikolas Watson Estimated Blood Loss (ml): 10 Pathology: none sent Condition: stable Disposition: PACU Indications for Procedure: 78-year-old patient seen with progressive right shoulder pain. After having treatment options discussed, she elected to proceed with arthroscopy. Operative Findings: See description of procedure Description of Procedure: Patient underwent an interscalene block by department of anesthesia. The patient was then taken to the operative suite. The patient underwent a general anesthetic by the department of anesthesia. The patient was placed into a lateral position and secured. There was appropriate padding of the bony prominence. Right shoulder was then prepped and draped in normal sterile orthopedic fashion. We placed the extremity in 10 pounds of longitudinal traction. A posterior incision was now made for a posterior working portal site. The trocar and cannula were inserted into the glenohumeral joint. Arthroscopy was initiated. Spinal needle was now inserted anteriorly, to ascertain the anterior working portal site. An incision was now made in that area, a trocar was inserted followed by a probe. There was significant partial tearing long head biceps tendon. There was superficial tearing of the superior and anterior labrum. There were grade II/III chondromalacia changes without osteochondral flap tears. I performed an arthroscopic biceps tenotomy. I debrided out the superficial labral tears with a motorized shaver. The residual labrum was probed and was found to be stable. Instruments were now removed from glenohumeral joint. Utilizing the posterior working portal site, the trocar and cannula were inserted into the subacromial space. Arthroscopy initiated. I made an incision 2 fingerbreadths lateral to the acromion. I introduced my trocar followed by my ArthroCare ablator. I now began ablating thick subacromial bursal tissue, which exposed the undersurface of the anterior acromion. There was diminished subacromial space. There was a very prominent anterior acromion. A motorized bur was introduced and a subacromial decompression was performed. I also excised some osteophytes off the inferior aspect of the distal clavicle. The AC joint was visualized and noted to be fairly arthritic. The motorized bur was introduced in the anterior portal site and a Serg procedure was performed without difficulty removing 8 mm of bone off the distal clavicle, decompressing the AC joint nicely. I turned my attention to the rotator cuff. There was a large rotator cuff tendon tear that was torn mid substance at what appeared to be the muscle tendon junction. The tendon was completely intact distally. I debrided the margins getting down to stable tendon tissue. I was able to find some tendon tissue posteriorly on the proximal side but no significant tendon tissue anteriorly on the proximal side. At this point I decided to proceed with a [id number] repair. With the assistance of Luis Alberto RAMÍREZ past 5 converging sutures and I utilized some of the biceps tendon stump anteriorly and some labral tissue anteriorly as there was no tendon to repair 2. I now tied each suture one by one converging the tendon tissue posteriorly and anteriorly converging the soft tissues. All residual suture limbs were clipped. We had a fairly stable appearing intrasubstance repair. Instruments now removed from the portal sites. All portal sites were approximated with nylon suture. Sterile dressings were applied followed by a shoulder immobilizer. Nikolas RAMÍREZ assisted in this complex case. The patient was awakened, transferred to a bed, and taken to recovery in stable condition.
[2024-05-03 10:22] VITALS: BP 152/82; PULSE 82
--- NOTE | 2024-05-04 06:30 | P.ANPRN ---
Procedure Note - Anesthesia - Nerve Block Performed Right Interscalene Single Time Out Performed: Yes Date of Procedure: 05/03/24 Procedure Start Time: :10 Procedure Stop Time: 07:13 Location of Patient: PreOp Indication: Acute Post-Operative Pain, Requested by Surgeon Sedation Type: Sedate with meaningful contact maintained Preparation: Sterile Prep Position: Supine Catheter: Indwelling Needle Types: Pajunk Needle Gauge: 21 Ultrasound used to visualize needle placement: Yes Ultrasound used to observe medication spread: Yes Blood Aspirated: No Pain Paresthesia on Injection Noted: No Resistance on Injection: Normal Image Stored and Saved: Yes Events: Uneventful and Well Tolerated (ropi 0.5% 20 cc plus dexamethasone 4 mg)
== END 2024-05-03 10:59 | disposition home or self-care (01) ==
LOC: OR 05:33
PROVIDERS: ATTEND Orthopaedic Surgery
DX: M75.41 Impingement syndrome of right shoulder (principal); M75.101 Unspecified rotator cuff tear or rupture of right shoulder, not specified as traumatic; M19.011 Primary osteoarthritis, right shoulder; S46.111A Strain of muscle, fascia and tendon of long head of biceps, right arm, initial encounter; S43.401A Unspecified sprain of right shoulder joint, initial encounter; M94.211 Chondromalacia, right shoulder; I10 Essential (primary) hypertension; E03.9 Hypothyroidism, unspecified; M79.7 Fibromyalgia; X58.XXXA Exposure to other specified factors, initial encounter; Z79.899 Other long term (current) drug therapy; Z79.890 Hormone replacement therapy; Z88.2 Allergy status to sulfonamides; Z88.5 Allergy status to narcotic agent
CPT/HCPCS: 29827; 29824; 29823; 64415; C1713; J2250; J0330; J1100; J2710; J0690; J2405; J2003; J3010; J2795; J2704; J1596; 64447